=== PATIENT | female | born 1990 | race Caucasian/White ===

== ENCOUNTER 2020-09-15 19:03 | Emergency (ER) | payer BC | END 2020-09-15 20:06 | disposition left against medical advice (07) | LOC: ER1 19:03 | DX: Z53.21 Procedure and treatment not carried out due to patient leaving prior to being seen by health care provider (principal) ==

== ENCOUNTER 2020-09-16 11:59 | Emergency (ER) | payer BC, OTHER ==
[2020-09-16 13:13] LABS: HEMOGLOBIN 11.9 gm/dl (12.3-15.3); RED BLOOD COUNT 3.98 M/UL (4.00-5.10); WHITE BLOOD COUNT 6.7 K/UL (4.5-11.0)
[2020-09-16 13:27] LABS: BUN/CREATININE RATIO 19 (0-10)
== END 2020-09-16 17:38 | disposition home or self-care (01) ==
LOC: ER1 11:59
PROVIDERS: Physician Assistant
DX: N83.201 Unspecified ovarian cyst, right side (principal)
CPT/HCPCS: 80053; 81001; 82150; 83690; 84703; 85025; 96374; 96375; 99284; J1885; Q9967

== ENCOUNTER 2021-06-28 13:35 | Emergency (ER) | payer BC, OTHER ==
[2021-06-28] MEDS ORDERED: PROAIR HFA8.5 GM INH (14:49)
== END 2021-06-28 14:50 | disposition home or self-care (01) ==
LOC: ER1 13:35
DX: U07.1 COVID-19 (principal); J20.9 Acute bronchitis, unspecified
CPT/HCPCS: 71045; 99283

== ENCOUNTER 2021-07-03 19:37 | Emergency (ER) | payer BC ==
[2021-07-03 20:31] LABS: HEMOGLOBIN 12.7 gm/dl (12.3-15.3); RED BLOOD COUNT 4.25 M/UL (4.00-5.10); WHITE BLOOD COUNT 4.7 K/UL (4.5-11.0)
[2021-07-03 20:52] LABS: BUN/CREATININE RATIO 16 (0-10)
== END 2021-07-03 21:14 | disposition home or self-care (01) ==
LOC: ER1 19:37
PROVIDERS: Physician Assistant
DX: U07.1 COVID-19 (principal); R30.0 Dysuria
CPT/HCPCS: 80053; 81001; 82150; 83690; 84703; 85025; 87086; 99283; Q9967

== ENCOUNTER → 2021-07-03 | Outpatient (CLI) | payer BC ==
[~2021-07-03] MED LIST: PROAIR HFA8.5 GM INH
== END ==
LOC: KOH-I 12:58
DX: R05.9 Cough, unspecified (principal); U09.9 Post COVID-19 condition, unspecified
CPT/HCPCS: 71046

== ENCOUNTER 2021-08-18 09:06 | Emergency (ER) | payer BC ==
[2021-08-18 09:36] LABS: HEMOGLOBIN 13.8 gm/dl (12.3-15.3); RED BLOOD COUNT 4.52 M/UL (4.00-5.10); WHITE BLOOD COUNT 7.4 K/UL (4.5-11.0)
[2021-08-18 09:54] LABS: BUN/CREATININE RATIO 14 (0-10)
[2021-08-18] MEDS ORDERED: PROMETHAZINE12.5 M1 PO (10:51)
== END 2021-08-18 11:05 | disposition home or self-care (01) ==
LOC: ER1 09:06
PROVIDERS: Nurse Practitioner
DX: R11.0 Nausea (principal); R19.7 Diarrhea, unspecified
CPT/HCPCS: 80053; 80076; 81001; 82150; 83690; 84703; 85025; 87086; 96374; 99284; J2405